=== PATIENT | male | born 1960 | race Caucasian/White ===

== ENCOUNTER 2018-04-30 08:41 | Outpatient (CLI) | payer BC ==
--- NOTE | 2018-04-30 17:42 | Diagnostic Imaging Report ---
SONIA ALVA [facility] [address] [facility] [address] [place], [place]. [address] Report Submission Date: Apr 30, 2018 10:13:35 AM CDT Patient Study Name: ANGELLA MANE Date: Apr 30, 2018 8:53:57 AM CDT Modality Type: CT\SR Gender: M Description: CT ABD PELVIS W/O CO : 56 Institution: [facility] Physician: SONIA ALVA Examination: CT Abdomen/pelvis History: ABDOMINAL PAIN W/HEMATURIA (Hx) Comparison exams: None available Technique: CT Abdomen/pelvis without contrast protocol. Findings: Renal cortical margins are symmetric. Low density area mid left kidney suspicious for cyst. No cortical or calyceal calcifications bilaterally. Significant prominence of the left ureter with perinephric stranding. Within the distal ureter just proximal to the ureterovesicular junction is a calcific density measuring 3.6 mm. Right ureter without abnormal dilation or central calcification. Bladder partially decompressed. Prominent prostate gland. Liver, spleen, adrenals, gallbladder and pancreas are without gross irregularity given exam technique. Abdominal aorta demonstrates peripheral described disease. No aneurysm. Cardiac silhouette is not enlarged. No pericardial effusion. Bowel unopacified limiting evaluation. No mesenteric inflammatory changes or free fluid. No abnormal dilation of the small bowel. Stool throughout the large bowel limiting sensitivity. Osseous structures demonstrate degenerative changes. Lung bases demonstrate emphysematous changes. No focal consolidation or posterior fusion. Impression: 3.6 mm left ureterolithiasis within the distal ureter associate with proximal ureteric dilation and periureteric stranding - obstructive uropathy. Consider Urology consultation. No evidence for nephrolithiasis. No other acute upper abdominal organ inflammatory process. No abnormal bowel dilation or inflammation. Mild emphysematous changes without consolidation or effusion. Discussed findings with Dr. Alva' nurse Renetta at 1013 hours on 30 April 2018 CDT Electronically signed on Apr 30, 2018 10:13:35 AM CDT by: Cordell MATTSON
== END 2018-04-30 08:42 ==
LOC: RAD 08:41
PROVIDERS: ATTEND Family Medicine
DX: R10.9 Unspecified abdominal pain (principal)
CPT/HCPCS: 74176